=== PATIENT | female | born 1965 | race Two or more races ===

== ENCOUNTER 2020-02-10 01:49 | Emergency (ER) | payer SELFPAY ==
[~2020-02-10] VITALS: Ht 162.6 cm; Wt 90.7 kg
[~2020-02-10 01:49] MED LIST: MECL-159 PO
--- NOTE | 2020-02-10 01:53 | NUR ---
PT BIBA FROM HOME C/O R SIDED BURNING HEADACHE X 3 WEEKS S/P FALL. +DIZZINESS. PT AAOX4, VSS, RESPIRATIONS EVEN AND UNLABORED ON RA W/ NAD NOTED. PT CONNECTED TO THE [facility] [facility] CONSULTING ARCHITECT AND POX
--- NOTE | 2020-02-10 02:19 | NUR ---
CALLED RD FOR CT
--- NOTE | 2020-02-10 02:20 | NUR ---
PT TAKEN TO RADIOLOGY FOR CT
--- NOTE | 2020-02-10 02:29 | NUR ---
PT BACK FROM CT
[2020-02-10] MEDS ORDERED: ACETAMINOPHEN ES 500 MG TABLET ONE (03:07)
[2020-02-10] MEDS: ACETAMINOPHEN ES 500 MG TABLET PO ONE (03:29)
--- NOTE | 2020-02-10 05:52 | NUR ---
Patient discharged to home in stable condition. Written and verbal after care instructions given. Patient verbalizes understanding of instruction.pt. ambulatory with a steady gait
[2020-02-10 05:54] VITALS: BP 105/62
== END 2020-02-10 05:55 | disposition home or self-care (01) ==
LOC: ER 01:52
DX: G44.209 Tension-type headache, unspecified, not intractable (principal); R42 Dizziness and giddiness; Z79.899 Other long term (current) drug therapy
CPT/HCPCS: 70450-TC